=== PATIENT | male | born 1955 | race Caucasian/White ===

== ENCOUNTER 2016-11-16 00:47 | Emergency (ER) | payer OTHER ==
[~2016-11-16] VITALS: Ht 175.3 cm; Wt 108.3 kg
[2016-11-16] MEDS ORDERED: PERCOCET 5/31 TABLET PO (02:34)
[2016-11-16 02:42] VITALS: BP 156/84
== END 2016-11-16 02:43 | disposition home or self-care (01) ==
LOC: EME 00:47 → EXP 00:47
PROC: 0S9C3ZZ Drainage of Right Knee Joint, Percutaneous Approach (ICD-10-PCS; principal; 2016-11-16)
DX: M17.11 Unilateral primary osteoarthritis, right knee (principal); M25.461 Effusion, right knee
CPT/HCPCS: 73564; 99281; 99284; S0020

== ENCOUNTER 2017-02-20 22:19 | Inpatient (IN) | payer OTHER ==
[~2017-02-20] VITALS: Ht 175.3 cm; Wt 105.8 kg
[~2017-02-20 22:19] MED LIST: AMBIEN10 MG PO; AMLODIPINE BESY10 MG PO; CELEBREX200 MG PO; FLOMAX0.4 MG PO; FLONASE16 G1 BOTH NARES; IRON325 M1 PO; LISINOPRIL20 MG PO; LORAZEPAM0.5 MG PO; PANTOPRAZOLE SO40 MG PO; PERCOCET 5/31 TABLET PO; TYLENOL EXTRA500 MG PO
[2017-02-21 10:00] VITALS: BP 148/76
[2017-02-21 10:15] VITALS: BP 148/76
[2017-02-21 11:08] LABS: POINT-OF-CARE METER ID UU13113694
[2017-02-21 15:25] VITALS: BP 146/71
[2017-02-21 19:31] VITALS: BP 173/90
[2017-02-21 22:28] VITALS: BP 187/94
[2017-02-22 00:29] VITALS: BP 182/86
[2017-02-22 03:59] VITALS: BP 187/83
[2017-02-22 06:12] LABS: HEMATOCRIT 39.2 % (38.0-50.0); MCV 86.2 FL (86-99)
[2017-02-22 08:06] VITALS: BP 168/82
[2017-02-22 11:38] VITALS: BP 187/88
[2017-02-22 15:48] VITALS: BP 177/85
[2017-02-22 20:10] VITALS: BP 179/85
[2017-02-23 00:28] VITALS: BP 171/85
[2017-02-23 04:42] VITALS: BP 147/78
[2017-02-23 06:50] LABS: HEMATOCRIT 35.7 % (38.0-50.0); MCV 86.7 FL (86-99)
[2017-02-23] MEDS ORDERED: OXYCODONE HCL5 MG PO (08:57)
[2017-02-23] MEDS ORDERED: ELIQUIS2.5 MG PO (08:57)
[2017-02-23] MEDS ORDERED: HYDROXYZINE PAM25 MG PO (08:57)
[2017-02-23] MEDS ORDERED: OXYCONTIN10 MG PO (08:57)
[2017-02-23 11:55] VITALS: BP 146/67
== END 2017-02-23 14:12 | DRG 470 ==
LOC: ENRESERV 22:19 → 2SOUTH 02-21 09:19 → 3WEST 02-21 14:55
PROVIDERS: Orthopaedic Surgery
DX: M17.11 Unilateral primary osteoarthritis, right knee (principal); G47.30 Sleep apnea, unspecified; I10 Essential (primary) hypertension; E11.9 Type 2 diabetes mellitus without complications; K21.9 Gastro-esophageal reflux disease without esophagitis
CPT/HCPCS: 82948; 85014; 85018; 94660; C1713; J0131; J0690; J1885; J2250; J2405; J2795; J3010; J7050; Q0177